=== PATIENT | female | born 1970 | race Caucasian/White ===

== ENCOUNTER 2020-03-31 14:25 | Emergency (ER) | payer MEDICAID ==
[~2020-03-31] VITALS: Ht 157.5 cm; Wt 68.9 kg
[2020-03-31 14:46] VITALS: Ht 157.5 cm; Wt 68.9 kg
[2020-03-31 17:46] LABS: UA SPECIFIC GRAVITY 1.015 (1.005-1.035); microscopic required? YES; urine erythrocyte NEGATIVE (NEGATIVE)
[2020-03-31 18:00] LABS: AMPHETAMINE QUAL UR NONE DETECTED (See below)
[2020-03-31 18:06] LABS: PLATELET COUNT 303 x10^3mcL (130-400)
[2020-03-31 18:08] LABS: CALCIUM 9.6 mg/dL (8.5-10.1); CARBON DIOXIDE 29.4 mmol/L (21-32); CHLORIDE SERUM 99 mmol/L (98-107); CREATININE SERUM 0.8 mg/dL (0.6-1.0); GFR1 > 60 mL/min; GLUCOSE SERUM 195 mg/dL (74-106); POTASSIUM SERUM 3.6 mmol/L (3.5-5.1); SODIUM SERUM 138 mmol/L (136-145)
[2020-03-31 18:22] LABS: ALBUMIN 4.3 g/dL (3.4-5.0); ALKALINE PHOSPHATASE 115 U/L (46-116); ALT/SGPT 59 U/L (14-59); AST/SGOT 35 U/L (15-37); BILIRUBIN TOTAL 0.41 mg/dL (0.20-1.00); CHOLESTEROL 166 mg/dL (<200); LIPASE 88 IU/L (73-393); T4(THYROXINE) 10.2 ug/dL (4.7-13.3)
[2020-03-31 18:30] LABS: HDL CHOLESTEROL 71 mg/dL (40-60); TOTAL PROTEIN, SERUM 8.8 g/dL (6.4-8.2)
[2020-03-31 19:36] VITALS: BP 110/77
== END 2020-03-31 19:37 | disposition home or self-care (01) ==
LOC: ED 14:25
PROVIDERS: Emergency Medicine
DX: R53.1 Weakness (principal); F41.9 Anxiety disorder, unspecified; I10 Essential (primary) hypertension; E11.9 Type 2 diabetes mellitus without complications; Z98.890 Other specified postprocedural states
CPT/HCPCS: 82962; 83880; Q0092